=== PATIENT | male | born 1980 | race Caucasian/White ===

== ENCOUNTER 2017-10-23 16:45 | Emergency (ER) | payer SELFPAY ==
[~2017-10-23] VITALS: Ht 10 cm; Wt 95.7 kg
[2017-10-23] MEDS ORDERED: DIPH,PERTUSS(ACELL),TET PED/PF 0.5 ML VIAL VAX IM ONE (17:30)
--- NOTE | 2017-10-23 17:35 | PHYS DOC ---
Past History Past Medical History: No Pertinent History Smoking: Cigarettes Adult General Chief Complaint Chief Complaint: LACERATION/AVULSION HPI HPI Patient is a 37 year old male who presents with complaining of laceration to forehead. Patient states he trimming a tree at his home and a tree branch hit him on forehead without loss of consciousness or other injuries. Patient rated his pain 3/10 and denies focal neuro deficit, headache, nausea and vomiting, fever and chills. Patient is not up-to-date with tetanus immunization. Review of Systems Review of Systems Constitutional: Denies fever or chills [] Eyes: Denies change in visual acuity, redness, or eye pain [] HENT: Denies nasal congestion or sore throat [] Respiratory: Denies cough or shortness of breath [] Cardiovascular: No additional information not addressed in HPI [] GI: Denies abdominal pain, nausea, vomiting, bloody stools or diarrhea [] : Denies dysuria or hematuria [] Musculoskeletal: Denies back pain or joint pain [] Integument: Denies rash or skin lesions [] Neurologic: Denies headache, focal weakness or sensory changes [] Endocrine: Denies polyuria or polydipsia [] All other systems were reviewed and found to be within normal limits, except as documented in this note. Current Medications Current Medications Current Medications Medications (Trade) Dose Ordered Sig/Jennifer Start Time Stop Time Status Last Admin Dose Admin Diphtheria/ Tetanus/Acell Pertussis (Infanrix Dtap Vial) 0.5 ml ONCE ONCE 10/23/17 17:30 10/23/17 17:31 UNV Allergies Allergies Allergies Coded Allergies Type Severity Reaction Last Updated Verified No Known Drug Allergies 10/23/17 No Physical Exam Physical Exam Constitutional: Well developed, well nourished, mild distress, non-toxic appearance. [] HENT: Normocephalic, 3 cm irregular, superficial, oblique laceration in middle of forehead without active bleeding, bilateral external ears normal, oropharynx moist, no oral exudates, nose normal. [] Eyes: PERRLA, EOMI, conjunctiva normal, no discharge. [] Neck: Normal range of motion, no tenderness, supple, no stridor. [] Cardiovascular:Heart rate regular rhythm, no murmur [] Lungs & Thorax: Bilateral breath sounds clear to auscultation [] Extremities: No tenderness, no cyanosis, no clubbing, ROM intact, no edema. [] Neurologic: Alert and oriented X 3, normal motor function, normal sensory function, no focal deficits noted. [] Psychologic: Affect normal, judgement normal, mood normal. [] EKG EKG [] Radiology/Procedures Radiology/Procedures [] Course & Med Decision Making Course & Med Decision Making Evaluation of patient in ER showed 37-year-old male patient with a laceration to forehead that was repaired with Dermabond and Steri-Strip. Dragon Disclaimer Dragon Disclaimer This electronic medical record was generated, in whole or in part, using a voice recognition dictation system. Laceration Repair Lac Repair Indication: Forehead laceration Procedure: The patient was placed in the appropriate position 3 cm forehead laceration was repaired with Dermabond and Steri-Strip. Total repaired wound length: 3 cm. Other Items: Non- The patient tolerated the procedure well. Complications: None Departure Departure: Impression: Primary Impression: Forehead laceration Additional Impression: Tobacco abuse counseling Disposition: 01 HOME, SELF-CARE (at 1740) Condition: IMPROVED Referrals: PCP,LALITO (PCP) Patient Instructions: Laceration Care, Adult, Tissue Adhesive Wound Care Additional Instructions: Apply ice on affected area Drink plenty of liquids Follow-up with your primary care physician in 3-5 days Return to ER if not getting better Problem Qualifiers BRADY BOTELLO MD Oct 23, 2017 17:35
[2017-10-23] MEDS ORDERED: DIPHTH,PERTUSS(ACELL),TET TOX 0.5 ML DISP.SYRIN. VAX IM ONE (17:45)
[2017-10-23 18:10] VITALS: BP 139/69
== END 2017-10-23 18:00 | disposition home or self-care (01) ==
LOC: ER 16:45
DX: S01.81XA Laceration without foreign body of other part of head, initial encounter (principal); F17.210 Nicotine dependence, cigarettes, uncomplicated; Z71.6 Tobacco abuse counseling; W22.8XXA Striking against or struck by other objects, initial encounter; Y93.H2 Activity, gardening and landscaping; Y92.098 Other place in other non-institutional residence as the place of occurrence of the external cause; Y99.8 Other external cause status
CPT/HCPCS: 12002; 90471; 90715; 99283-25